=== PATIENT | female | born 1980 | race Caucasian/White ===

== ENCOUNTER → 2018-06-27 13:00 | Outpatient (CLI) | payer OTHER, SELFPAY | PROVIDERS: PCP Family Medicine | DX: Z23 Encounter for immunization (principal) | CPT/HCPCS: 90471; 90686 ==

== ENCOUNTER → 2018-11-05 10:58 | Outpatient (CLI) | payer OTHER, SELFPAY | PROVIDERS: PCP Family Medicine; Visit Provider Physician Assistant | DX: R68.89 Other general symptoms and signs (principal) | CPT/HCPCS: 87400 ==

== ENCOUNTER → 2019-01-10 10:29 | Outpatient (CLI) | payer OTHER, SELFPAY ==
--- NOTE | 2019-01-10 | DI.US.S_ITS ---
PROCEDURE: US PELVIC COMPLETE INDICATIONS: PELVIC/PERINEAL PAIN TECHNIQUE: Real-time scanning was performed of the pelvic organs, with image documentation. Additional endovaginal scanning was necessary due to incomplete visualization of the adnexal and endometrial structures by transabdominal scanning. COMPARISON: None. FINDINGS: Transabdominal scanning: Limited scanning through the kidneys shows no hydronephrosis. No pathologic free abdominal or pelvic fluid. Endovaginal scanning: Uterus: Uterus is normal in size at 7.6 x 3.1 x 4.4 cm. The endometrium measures 4-5 mm in combined thickness. Ovaries: Right ovary measures 2.6 x 2.2 x 2.2 cm. There are simple appearing physiologic follicles measuring 1.2 x 1.1 x 1.2 cm, and 1.3 x 0.7 x 1.6 cm. Left ovary measures 2.0 x 2.0 x 1.8 cm and is unremarkable. IMPRESSION: Unremarkable examination as above. Dictated by: Abhishek Lo M.D. on 01/10/2019 at 11:16 Approved by: Abhishek Lo M.D. on 01/10/2019 at 11:19
== END ==
PROVIDERS: PCP Family Medicine; Visit Provider Family Medicine
DX: R10.2 Pelvic and perineal pain (principal)
CPT/HCPCS: 76830; 76856

== ENCOUNTER → 2019-04-12 16:59 | Outpatient (CLI) | payer OTHER, SELFPAY ==
--- NOTE | 2019-04-12 17:00 | DI.MG.S_ITS ---
BILATERAL DIGITAL SCREENING MAMMOGRAM 3D/2D WITH CAD: 04/12/2019 CLINICAL: Routine screening. Baseline exam. Family history of breast cancer. No prior exams were available for comparison. The tissue of both breasts is heterogeneously dense. This may lower the sensitivity of mammography. Current study was also evaluated with a Computer Aided Detection (CAD) system. No significant masses, calcifications, or other findings are seen in either breast. IMPRESSION: NEGATIVE There is no mammographic evidence of malignancy. A 1 year screening mammogram is recommended. This exam was interpreted at Station ID: [id number]. NOTE: For mammograms, a report in lay terms will be sent to the patient. Approximately 15% of breast malignancies will not be visualized mammographically. In the management of a palpable breast mass, a negative mammogram must not discourage biopsy of a clinically suspicious lesion. Electronically Signed By: Kevon villarreal/rene:04/13/2019 08:15:04 letter sent: Normal Exam ACR BI-RADS Category 1: Negative 3341F
== END ==
PROVIDERS: PCP Family Medicine; Visit Provider Family Medicine
DX: Z12.31 Encounter for screening mammogram for malignant neoplasm of breast (principal); Z80.3 Family history of malignant neoplasm of breast
CPT/HCPCS: 77063; 77067

== ENCOUNTER 2019-07-20 10:12 | Emergency (ER) | payer OTHER, SELFPAY ==
[2019-07-20 10:36] VITALS: BP 116/72; PULSE 155; RESP 18; TEMP 37; O2SAT 98
[2019-07-20 10:43] LABS: Add Manual Diff / Slide Review NO; Basophils Absolute Auto 0 /uL (0-100); Basophils Percent Auto 0.4 % (0-2); Eosinophils Absolute Auto 0 /uL (0-450); Eosinophils Percent Auto 0.1 % (2-4); Lymphocytes Absolute Auto 800 /uL (1100-4500); Lymphocytes Percent Auto 8.7 % (25-40); Mean Corpuscular Hemoglobin 26.8 PG (26-34); Mean Corpuscular Volume 78.9 fL (80-100); Monocytes Absolute Auto 500 /uL (0-900); Monocytes Percent Auto 5.8 % (3-14); Neutrophils Absolute Auto 8100 /uL (1500-7000); Platelet Count 182 X10^3/uL (150-400); Red Cell Distribution Width 13.9 % (11.6-14.8); White Blood Cell Count 9.5 X10^3/uL (4.5-11.0)
[2019-07-20] MEDS: SODIUM CHLORIDE 0.9% 1,000 ML 1000 ML IV ×2 (10:43→12:02)
[2019-07-20 10:56] LABS: Lactate (Lactic Acid) 1.1 mmol/L (0.7-2.1)
[2019-07-20 11:04] VITALS: BP 120/76; PULSE 123; RESP 22; O2SAT 97
[2019-07-20 11:08] LABS: Strep Grp A by PCR Rapid Negative
[2019-07-20] MEDS: CEFTRIAXONE 1 GM/50 ML FROZ.PIGGY IV (11:10)
[2019-07-20] MEDS: KETOROLAC 60 MG/2 ML VIAL 15 MG IV (11:10)
[2019-07-20] MEDS: DEXAMETHASONE 10 MG/ML VIAL IV (11:10)
[2019-07-20 11:36] LABS: Procalcitonin < 0.05 ng/mL (<0.5)
[2019-07-20 11:48] LABS: Blood Urea Nitrogen 7 mg/dL (7-17); Calcium 8.8 mg/dL (8.4-10.2); Carbon Dioxide 21 mmol/L (22-32); Chloride 107 mmol/L (98-107); Estimated Glomerular Filt Rate > 60.0 mL/min (>60); Glucose 114 mg/dL (70-100); HEMOLYSIS < 15 (0-50); Magnesium 1.8 mg/dL (1.6-2.3); Sodium 140 mmol/L (137-145)
[2019-07-20 12:34] LABS: Influenza A and B by PCR Rapid Negative (Negative)
[2019-07-20 13:10] VITALS: BP 112/65; PULSE 123; RESP 20; O2SAT 97
[2019-07-20 14:04] VITALS: BP 120/73; PULSE 116; RESP 16; O2SAT 96
--- NOTE | 2019-07-20 14:22 | ED.URI ---
HPI - URI/Sore Throat General Chief Complaint: Upper Respiratory Symptoms Stated Complaint: FEVER SORE THROAT Time Seen by Provider: 07/20/19 10:14 Source: patient and family Mode of arrival: Ambulatory Limitations: no limitations History of Present Illness HPI Narrative: 39-year-old female nonsmoker with benign medical history presents from the walk-in clinic for evaluation of severe sore throat, difficulty swallowing due to pain, fever and high heart rate. There is concern for peritonsillar abscess and sepsis. Patient denies any runny nose or cough. She has no nausea, vomiting or diarrhea. MD Complaint: fever and sore throat Onset (ago): hour(s) Duration: constant Severity: moderate Relieving factors: nothing Exacerbating factors: swallowing Able to tolerate fluids by mouth: Yes Associated symptoms: fever Treatments prior to arrival: none Related Data Home Medications Medication Instructions Recorded Confirmed sertraline [Zoloft] 100 mg PO QDAY #0 01/12/13 11/05/18 Previous Rx's Medication Instructions Recorded benzonatate 100 mg capsule 100 mg PO TID PRN #30 cap 11/05/18 codeine 10 mg-guaifenesin 100 mg/5 10 ml PO .QHS PRN #120 ml 11/05/18 mL oral liquid ipratropium bromide 17 1 inhalation INHALATION QID PRN 11/05/18 mcg/actuation HFA aerosol inhaler #12.9 gram amoxicillin-pot clavulanate 1 tab PO BID #20 tab 07/20/19 [Augmentin] Allergies Allergy/AdvReac Type Severity Reaction Status Date / Time No Known Drug Allergies Allergy Verified 11/05/18 10:51 Review of Systems Constitutional Constitutional: Reports chills, Reports fatigue, Reports fever(s), Denies frequent falls, Denies lethargy and Denies weakness Eyes Eyes: Denies change in vision, Denies eye discharge, Denies irritation and Denies loss of vision ENT Ears, Nose, Mouth, and Throat: Denies change in voice, Denies dizziness, Denies neck pain, Denies sore throat and Denies throat swelling Cardiovascular Cardiovascular: Denies chest pain, Denies irregular heart rhythm, Denies lightheadedness, Reports palpitations, Denies dyspnea, Denies dyspnea on exertion and Denies orthopnea Respiratory Respiratory: Denies cough, Denies dyspnea, Denies dyspnea on exertion and Denies wheezing Gastrointestinal Gastrointestinal: Denies abdominal pain, Denies change in bowel habits, Denies diarrhea, Denies nausea and Denies vomiting Genitourinary Genitourinary: Denies hematuria, Denies flank pain, Denies urinary incontinence and Denies urinary urgency Musculoskeletal Musculoskeletal: Denies back pain, Denies muscle weakness, Denies neck pain, Denies numbness and Denies tingling Integumentary/Breasts Skin/Breast: Denies pruritus, Denies erythema, Denies rash and Denies wounds Neurologic Neurologic: Denies behavioral changes, Denies confusion, Denies dizziness, Denies frequent falls, Denies loss of vision, Denies numbness, Denies tingling and Denies weakness Psychiatric Psychiatric: Denies anxiety, Denies behavioral changes, Denies confusion, Denies depression, Denies homicidal ideation and Denies suicidal ideation Endocrine Endocrine: Reports fatigue, Denies flushing and Reports palpitations Hematologic/Lymphatic Hematologic/Lymphatic: Denies easy bruising Allergic/Immunologic Allergic/Immunologic: Denies urticaria, Denies throat swelling and Denies wheezing Patient History Social History Smoking Status: Never smoker alcohol intake frequency: 0-2 drinks per day Substance Use Type: does not use Exam Narrative Exam Narrative: GENERAL: [39] year old patient appears stated age. Well-nourished, well-developed patient, in mild distress. HEAD: Atraumatic. Normocephalic. EYES: Pupils equal round and reactive. Extraocular motions intact. No scleral icterus. No injection or drainage. ENT: Nose without bleeding, purulent drainage. Throat with erythema, but no tonsillar hypertrophy or exudate. Airway patent. NECK: Trachea midline. Non tender CARDIOVASCULAR: Tachycardic but regular rhythm without murmurs, gallops, or rubs. RESPIRATORY: Clear to auscultation. Breath sounds equal bilaterally. No wheezes, rales, or rhonchi. GASTROINTESTINAL: Abdomen soft, non-tender, nondistended. EXTREMITIES: No edema or joint tenderness. BACK: Nontender without deformity or crepitance. No flank tenderness. NEURO: AOx3. SKIN: No rash or erythema of visible areas Initial Vital Signs Initial Vital Signs: Vital Signs Temperature 98.6 F 07/20/19 10:36 Pulse Rate 155 H 07/20/19 10:36 Respiratory Rate 18 07/20/19 10:36 Blood Pressure 116/72 07/20/19 10:36 Pulse Oximetry 98 07/20/19 10:36 Course Orders Ordered: ED Orders 07/20/19 10:30 Complete Blood Count AUTO DIFF Stat Procalcitonin Stat 07/20/19 10:42 Throat Culture Stat 07/20/19 10:50 Lactate (Lactic Acid) Stat Strep Grp A by PCR Rapid Stat 07/20/19 11:17 Basic Metabolic Panel Stat Blood Culture Stat Magnesium Stat 07/20/19 11:56 Influenza A and B by PCR Rapid Stat Discontinued Medications Dexamethasone (Decadron) 10 mg IV NOW ONE Stop: 07/20/19 10:35 Last Admin: 07/20/19 11:10 Dose: 10 mg Documented by: BALDO Ceftriaxone Sodium/Dextrose (Rocephin) 1 gm in 50 mls @ 100 mls/hr IV NOW ONE Stop: 07/20/19 11:03 Last Infusion: 07/20/19 11:40 Dose: 0 mls/hr Documented by: Admin: 07/20/19 11:10 Dose: 100 mls/hr Documented by: BALDO Sodium Chloride (Normal Saline 0.9%) 1,000 mls @ 1,000 mls/hr IV BOLUS ONE Stop: 07/20/19 11:33 Last Infusion: 07/20/19 12:00 Dose: 0 mls/hr Documented by: Admin: 07/20/19 10:43 Dose: 1,000 mls/hr Documented by: CHIP Sodium Chloride (Normal Saline 0.9%) 1,000 mls @ 1,000 mls/hr IV BOLUS ONE Stop: 07/20/19 13:00 Last Infusion: 07/20/19 13:50 Dose: 0 mls/hr Documented by: Admin: 07/20/19 12:02 Dose: 1,000 mls/hr Documented by: BALDO Ketorolac Tromethamine (Toradol) 15 mg IV NOW ONE Stop: 07/20/19 10:35 Last Admin: 07/20/19 11:10 Dose: 15 mg Documented by: BALDO Reevaluation(s) Reevaluation #1: patient continues to improve over the course of the visit, HR down to 105 at time of DC. Patient AOx3. Tolerating liquids Vital Signs Vital signs: Vital Signs - 8 hr 07/20/19 11:04 07/20/19 13:10 07/20/19 14:04 Pulse Rate 123 H 123 H 116 H Respiratory Rate 22 20 16 Blood Pressure [Right Arm] 120/76 112/65 120/73 Pulse Oximetry 97 97 96 MDM - URI/Sore Throat Lab Data Result diagrams: 07/20/19 10:30 07/20/19 11:17 Labs: Lab Results 07/20/19 07/20/19 07/20/19 Range/Units 10:30 10:30 10:50 WBC 9.5 (4.5-11.0) X10^3/uL RBC 5.20 (4.0-5.2) X10^6/uL Hgb 14.0 (12.0-16.0) g/dL Hct 41.0 (36-46) % MCV 78.9 L (80-100) fL MCH 26.8 (26-34) PG MCHC 34.0 (30-36) % RDW 13.9 (11.6-14.8) % Plt Count 182 (150-400) X10^3/uL Neut % (Auto) 85.0 H (50-75) % Lymph % (Auto) 8.7 L (25-40) % Josephine % (Auto) 5.8 (3-14) % Eos % (Auto) 0.1 L (2-4) % Baso % (Auto) 0.4 (0-2) % Neut # (Auto) 8100 H (9930-1278) /uL Lymph # (Auto) 800 L (0281-2563) /uL Josephine # (Auto) 500 (0-900) /uL Eos # (Auto) 0 (0-450) /uL Baso # (Auto) 0 (0-100) /uL Sodium (137-145) mmol/L Potassium (3.4-5.1) mmol/L Chloride (98-107) mmol/L Carbon Dioxide (22-32) mmol/L BUN (7-17) mg/dL Creatinine (0.52-1.04) mg/dL Estimated GFR (>60) mL/min BUN/Creatinine Ratio (6-22) Glucose (70-100) mg/dL Lactate 1.1 (0.7-2.1) mmol/L Calcium (8.4-10.2) mg/dL Magnesium (1.6-2.3) mg/dL Procalcitonin < 0.05 (<0.5) ng/mL Influenza A & B (PCR) (Negative) Group A Strep (PCR) 07/20/19 07/20/19 07/20/19 Range/Units 10:50 11:17 11:56 WBC (4.5-11.0) X10^3/uL RBC (4.0-5.2) X10^6/uL Hgb (12.0-16.0) g/dL Hct (36-46) % MCV (80-100) fL MCH (26-34) PG MCHC (30-36) % RDW (11.6-14.8) % Plt Count (150-400) X10^3/uL Neut % (Auto) (50-75) % Lymph % (Auto) (25-40) % Josephine % (Auto) (3-14) % Eos % (Auto) (2-4) % Baso % (Auto) (0-2) % Neut # (Auto) (4610-9833) /uL Lymph # (Auto) (0042-4471) /uL Josephine # (Auto) (0-900) /uL Eos # (Auto) (0-450) /uL Baso # (Auto) (0-100) /uL Sodium 140 (137-145) mmol/L Potassium 4.0 (3.4-5.1) mmol/L Chloride 107 (98-107) mmol/L Carbon Dioxide 21 L (22-32) mmol/L BUN 7 (7-17) mg/dL Creatinine 0.70 (0.52-1.04) mg/dL Estimated GFR > 60.0 (>60) mL/min BUN/Creatinine Ratio 10.0 (6-22) Glucose 114 H (70-100) mg/dL Lactate (0.7-2.1) mmol/L Calcium 8.8 (8.4-10.2) mg/dL Magnesium 1.8 (1.6-2.3) mg/dL Procalcitonin (<0.5) ng/mL Influenza A & B (PCR) Negative (Negative) Group A Strep (PCR) Negative Point of Care Testing Test Results Negative Urine Dip Bedside Urine Glucose Negative Bedside Urine Bilirubin - Negative Bedside Urine Ketone +++ 80 Urine Specific [place] 1.015 Bedside Urine Occult Blood - Negative Bedside Urine pH 6.0 Bedside Urine Protein - Negative Bedside Urine Urobilinogen - Negative Bedside Urine Nitrite - Negative Bedside Urine Leukocytes - Negative Esterase MDM Narrative Medical decision making narrative: Patient shows great improvement after above-stated therapies. Labs and exam are very reassuring. No peritonsillar abscess on exam. Given rapid onset of symptoms and elevated fever seems reasonable to treat with antibiotics until the cultures come back as we have had multiple negative POC straps with a follow-up culture that is positive. Return precautions given, questions answered to her apparent satisfaction. Discharge Plan Departure Patient Disposition: Home Clinical Impression: Pharyngitis Qualifiers: Pharyngitis/tonsillitis etiology: unspecified etiology Qualified Code(s): J02.9 - Acute pharyngitis, unspecified Discharge Date/Time: 07/20/19 14:29 Instructions: DI for Pharyngitis/Tonsillopharyngitis -- Adult Activity Restrictions/Additional Instructions: *You have been diagnosed with [ pharyngitis, flu and strep have been considered, but ruled out based on testing. ] *What to do: *Take medications as directed *Follow up with your primary care provider in 2-3 days, call for an appointment. Let them know you were seen in the Emergency Department and that we ask that you be seen in follow up *Return to ER if you should have any new, worsening or concerning symptoms Prescriptions: New amoxicillin-pot clavulanate [Augmentin] 875-125 mg tablet 1 tab PO BID Qty: 20 RF: 0 No Action benzonatate [Tessalon Perles] 100 mg capsule 100 mg PO TID PRN (Reason: cough) Qty: 30 RF: 0 codeine-guaifenesin [Cheratussin AC] 10-100 mg/5 mL liquid 10 ml PO .QHS PRN (Reason: cough limiting sleep) Qty: 120 RF: 0 ipratropium bromide 17 mcg/actuation HFA aerosol inhaler 1 inhalation INHALATION QID PRN (Reason: shortness of breath or wheezing) Qty: 12.9 RF: 0 sertraline [Zoloft] 100 MG tablet 100 mg PO QDAY Qty: 0 RF: 0 Referrals: Ines Pitts MD [Primary Care Provider] -
== END 2019-07-20 14:29 | disposition home or self-care (01) ==
PROVIDERS: Emergency Provider Emergency Medicine; PCP Family Medicine
DX: J02.9 Acute pharyngitis, unspecified (principal)
CPT/HCPCS: 36415; 80048; 81003; 81025; 83605; 83735; 84145; 85025; 87040; 87070; 87077; 87147; 87502; 87651; 96361; 96365; 96375; 99283; 99284; J1100; J1885

== ENCOUNTER → 2019-10-17 13:48 | Outpatient (CLI) | payer OTHER, SELFPAY ==
--- NOTE | 2019-11-02 16:12 | PM.CARDMON.1 ---
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 Rare PVC and PAC identified
== END ==
PROVIDERS: PCP Family Medicine; Referring Provider Family Medicine; Visit Provider Family Medicine
DX: R00.2 Palpitations (principal)
CPT/HCPCS: 0296T; 0298T

== ENCOUNTER → 2019-10-17 15:32 | Outpatient (ROUT) | payer OTHER, SELFPAY ==
[2019-10-17 16:10] LABS: Influenza A - CEPHEID Flu A NEGATIVE (NEGATIVE); Influenza B - CEPHEID Flu B NEGATIVE (NEGATIVE)
== END ==
PROVIDERS: PCP Family Medicine; Visit Provider Family Medicine
DX: R50.9 Fever, unspecified (principal); R07.0 Pain in throat
CPT/HCPCS: 87081; 87502

== ENCOUNTER → 2020-04-15 10:43 | Outpatient (CLI) | payer OTHER, SELFPAY ==
--- NOTE | 2020-04-15 | DI.MG.S_ITS ---
BILATERAL DIGITAL SCREENING MAMMOGRAM 3D/2D WITH CAD: 04/15/2020 CLINICAL: Routine screening. Family history of breast cancer. Comparison is made to exam dated: 04/12/[facility]. The tissue of both breasts is heterogeneously dense. This may lower the sensitivity of mammography. Current study was also evaluated with a Computer Aided Detection (CAD) system. No significant masses, calcifications, or other findings are seen in either breast. There has been no significant interval change. IMPRESSION: NEGATIVE There is no mammographic evidence of malignancy. A 1 year screening mammogram is recommended. This exam was interpreted at Station ID: [id number]. NOTE: For mammograms, a report in lay terms will be sent to the patient. Approximately 15% of breast malignancies will not be visualized mammographically. In the management of a palpable breast mass, a negative mammogram must not discourage biopsy of a clinically suspicious lesion. Electronically Signed By: Dg Allan M.D., jr/rene:04/15/2020 11:07:53 letter sent: Normal Exam ACR BI-RADS Category 1: Negative 3341F
== END ==
PROVIDERS: PCP Family Medicine; Referring Provider Family Medicine; Visit Provider Family Medicine
DX: Z12.31 Encounter for screening mammogram for malignant neoplasm of breast (principal); Z80.3 Family history of malignant neoplasm of breast
CPT/HCPCS: 77063; 77067

== ENCOUNTER → 2021-12-02 07:38 | Outpatient (CLI) | payer BC, SELFPAY ==
--- NOTE | 2021-12-02 | DI.MG.S_ITS ---
BILATERAL DIGITAL SCREENING MAMMOGRAM 3D/2D WITH CAD: 12/02/2021 CLINICAL: Routine screening. Family history of breast cancer. Comparison is made to exams dated: 04/15/2020 mammogram and 04/12/2019 mammogram - [facility]. The tissue of both breasts is heterogeneously dense. This may lower the sensitivity of mammography. Current study was also evaluated with a Computer Aided Detection (CAD) system. No significant masses, calcifications, or other findings are seen in either breast. There has been no significant interval change. IMPRESSION: NEGATIVE There is no mammographic evidence of malignancy. A 1 year screening mammogram is recommended. This exam was interpreted at Station ID: [id number]. NOTE: For mammograms, a report in lay terms will be sent to the patient. Approximately 15% of breast malignancies will not be visualized mammographically. In the management of a palpable breast mass, a negative mammogram must not discourage biopsy of a clinically suspicious lesion. Electronically Signed By: Julio de jesus/rene:12/02/2021 12:40:27 letter sent: Normal Exam ACR BI-RADS Category 1: Negative 3341F
== END ==
PROVIDERS: PCP Family Medicine; Referring Provider Family Medicine; Visit Provider Family Medicine
DX: Z12.31 Encounter for screening mammogram for malignant neoplasm of breast (principal); Z80.3 Family history of malignant neoplasm of breast
CPT/HCPCS: 77063; 77067

== ENCOUNTER → 2022-05-08 15:08 | Outpatient (CLI) | payer BC, SELFPAY | PROVIDERS: PCP Family Medicine; Visit Provider Registered Nurse | DX: J02.9 Acute pharyngitis, unspecified (principal) | CPT/HCPCS: 87070 ==

== ENCOUNTER → 2022-10-24 10:49 | Outpatient (CLI) | payer BC, SELFPAY ==
--- NOTE | 2022-10-24 10:51 | DI.MRI.S_ITS ---
PROCEDURE: MR SHOULDER LT WO CON INDICATIONS: Hyperlipidemia, unspecified TECHNIQUE: Noncontrast oblique coronal T2 fast spin echo with fat saturation, oblique sagittal T1 spin echo and T2 fast spin echo with fat saturation, axial T1 spin echo and T2 fast spin echo with fat saturation through the shoulder. COMPARISON: None. FINDINGS: Image quality: Excellent. Rotator cuff: Low-grade bursal surface partial thickness tear involving distal supraspinatus at its insertion on the humeral head is seen extending to musculotendinous junction. Distal infraspinatus and subscapularis tendinosis is seen. No full-thickness rotator cuff tendon rupture. Sagittal images demonstrate no significant rotator cuff muscle atrophy. Bones and bursae: Moderate acromioclavicular joint osteoarthritic changes are seen with joint space narrowing, subchondral sclerosis and edema and downward osteophyte formation depressing the musculotendinous junction of supraspinatus. Small to moderate joint effusion and subacromial subdeltoid bursal fluid is seen, no gross loose bodies. No fracture or dislocation. Capsule and soft tissues: There is subtle signal abnormality and contour irregularity involving superior anterior labrum at 12 to 1 o'clock position concerning for focal superior anterior labral tear. The long head of the biceps tendon demonstrates normal location and morphology. The rotator interval appears normal, without fibrosis. The coracohumeral ligament is normal in thickness. IMPRESSION: 1. Low-grade bursal surface partial-thickness tear involving distal supraspinatus extending to musculotendinous junction. Distal infraspinatus and subscapularis tendinosis. No full-thickness rotator cuff tendon rupture. No significant muscle atrophy. 2. Moderate acromioclavicular joint osteoarthritis. Small to moderate amount of joint effusion and subacromial subdeltoid bursal fluid. No fracture or dislocation. 3. Suggestion of subtle superior anterior labral tear at 12 to 1 o'clock position. Dictated by: Mayco Alba M.D. on 10/25/2022 at 10:08 Approved by: Mayco Alba M.D. on 10/25/2022 at 10:14
== END ==
PROVIDERS: PCP Family Medicine; Referring Provider Family Medicine; Visit Provider Family Medicine
DX: M75.112 Incomplete rotator cuff tear or rupture of left shoulder, not specified as traumatic (principal); M19.012 Primary osteoarthritis, left shoulder; E78.5 Hyperlipidemia, unspecified
CPT/HCPCS: 73221

== ENCOUNTER → 2024-10-13 10:32 | Outpatient (CLI) | payer BC, SELFPAY ==
--- NOTE | 2024-10-13 | DI.MG.S_ITS ---
BILATERAL DIGITAL SCREENING MAMMOGRAM 3D/2D WITH CAD: 10/13/2024 CLINICAL: Routine screening. Family history of breast cancer. Comparison is made to exams dated: 12/02/2021 mammogram, 04/15/2020 mammogram, and 04/12/2019 mammogram - [facility]. The breasts are heterogeneously dense, which may obscure small masses (category c / 51-75% glandular tissue). Current study was also evaluated with a Computer Aided Detection (CAD) system. No significant masses, calcifications, or other findings are seen in either breast. There has been no significant interval change. IMPRESSION: NEGATIVE There is no mammographic evidence of malignancy. A 1 year screening mammogram is recommended. Based on Tyrer-Cuzick model (a risk assessment model), the patient's lifetime risk is 22.4% and her 10 year risk is 4.6%. If a patient has an elevated risk, a more comprehensive evaluation should be considered and/or a referral to a genetic counselor. The [place] [employer], [place] [employer], and NCCN Guidelines advise the consideration of Breast MRI as an adjunct to screening mammography in patients whose Lifetime risk to develop breast cancer is 20% or higher. This exam was interpreted at Station ID: [id number]. NOTE: For mammograms, a report in lay terms will be sent to the patient. Approximately 15% of breast malignancies will not be visualized mammographically. In the management of a palpable breast mass, a negative mammogram must not discourage biopsy of a clinically suspicious lesion. Electronically Signed By: Kevon villarreal/rene:10/15/2024 07:31:59 letter sent: Normal Exam ACR BI-RADS Category 1: Negative
== END ==
PROVIDERS: PCP Family Medicine; Referring Provider Family Medicine; Visit Provider Family Medicine
DX: Z12.31 Encounter for screening mammogram for malignant neoplasm of breast (principal); Z80.3 Family history of malignant neoplasm of breast; R92.333 Mammographic heterogeneous density, bilateral breasts
CPT/HCPCS: 77063; 77067

== ENCOUNTER → 2024-10-29 12:27 | Outpatient (CLI) | payer BC, SELFPAY ==
--- NOTE | 2024-10-29 12:28 | DI.MRI.S_ITS ---
BREAST MRI OF BOTH BREASTS: 10/29/2024 CLINICAL: High risk screening. Family history of breast cancer. TECHNIQUE: The patient was placed prone in a dedicated breast imaging coil. Precontrast axial STIR and 3D FLASH without fat saturation sequences were obtained. Both before and after bolus injection of contrast, sequential 1-minute axial 3D FLASH with fat saturation sequences for 3 time points, with subtraction images and maximum intensity projections (MIP's) generated. Delayed sagittal FLASH images with fat saturation were also obtained. Computer-aided detection, including computer algorithm analysis of MRI image data for lesion detection and characterization, pharmacokinetic analysis, with further physician review for interpretation, was performed. COMPARISON: [facility], , SCREENING MAMMO BI, 12/02/2021, 7:59. [facility], SCREENING MAMMO BI, 10/13/2024, 11:00. FINDINGS: Image quality: Excellent. There is moderate bilateral background parenchymal enhancement. Right breast: No suspicious mass or non masslike enhancement. No skin or nipple abnormalities. Left breast: No suspicious mass or non masslike enhancement. No skin or nipple abnormalities. Miscellaneous: No axillary or internal mammary chain adenopathy. The visible portions of the chest wall, liver, heart, and lungs appear normal. IMPRESSION: NEGATIVE No MR evidence of malignancy in either breast. Continue annual screening with mammogram and MRI. BIRADS one, negative COMMENT: The imaging literature indicates that a negative contrast breast MRI examination has a high sensitivity and a moderate specificity for detecting and excluding invasive carcinomas to a detection threshold of 3-5 mm; nonetheless, appropriate clinical and mammographic follow-up are recommended. MRI is not sensitive for detecting DCIS (ductal carcinoma in situ) and may not detect large invasive neoplasms that show only minimal enhancement such as mucinous carcinoma. If there are suspicious calcifications or clinically worrisome palpable masses, then biopsy should still be considered. Invasive neoplasms can be hidden by co-existent and benign enhancement caused by mastitis, hormone therapy effects, radiation therapy, , and recent biopsy or surgery. False positive examinations can occur in a number of circumstances, including breasts that have recently been subject to invasive procedures and those that contain atypical ductal hyperplasia, hormonally stimulated glandular tissue, fat necrosis, or radial scars. This exam was interpreted at Station ID: [id number]. Electronically Signed By: Kitty malhotra/:10/29/2024 17:33:45 Entry: gulshan - 10/30/2024 08:53:14 ACR BI-RADS Category 1: Negative
== END ==
PROVIDERS: PCP Family Medicine; Referring Provider Family Medicine; Visit Provider Family Medicine
DX: R92.30 Dense breasts, unspecified (principal); Z91.89 Other specified personal risk factors, not elsewhere classified; Z12.39 Encounter for other screening for malignant neoplasm of breast; Z80.3 Family history of malignant neoplasm of breast
CPT/HCPCS: 77049; A9579

== ENCOUNTER → 2024-11-19 12:55 | Outpatient (CLI) | payer BC, SELFPAY ==
--- NOTE | 2024-11-19 12:58 | DI.RAD.S_ITS ---
PROCEDURE: XR PELVIS 1-2V INDICATIONS: LOW BACK PAIN TECHNIQUE: Single view(s) of the pelvis acquired. COMPARISON: None. FINDINGS: Bones: No fractures or dislocations. Lumbarized S1 spina bifida occulta noted. Otherwise, no suspicious bony lesions. Soft tissues: Visualized bowel gas pattern is normal. No suspicious soft tissue calcifications. IMPRESSION: No acute bony abnormality. Dictated by: Galen Linder M.D. on 11/19/2024 at 17:17 Approved by: Galen Linder M.D. on 11/19/2024 at 17:17
--- NOTE | 2024-11-19 12:58 | DI.RAD.S_ITS ---
PROCEDURE: XR LUMBAR SPINE MIN 4V INDICATIONS: LOW BACK PAIN TECHNIQUE: 5 views of the lumbar spine were acquired, including bilateral oblique views.>> COMPARISON: None. FINDINGS: Bones: 6 nonrib-bearing vertebrae are present. Transitional vertebral anatomy noted with lumbarization of S1. S1 spina bifida occulta noted. There is normal bony alignment. No vertebral body compression fractures. No suspicious bony lesions. Soft tissues: Overlying bowel gas pattern is normal. No suspicious soft tissue calcifications. Oblique images: No pars defects. IMPRESSION: No acute bony abnormality. S1 spina bifida occulta and transitional vertebral anatomy with lumbarization of S1. Dictated by: Galen Linder M.D. on 11/19/2024 at 17:12 Approved by: Galen Linder M.D. on 11/19/2024 at 17:16
== END ==
PROVIDERS: PCP Family Medicine; Referring Provider Family Medicine; Visit Provider Family Medicine
DX: M53.3 Sacrococcygeal disorders, not elsewhere classified (principal); Q76.0 Spina bifida occulta; Q76.49 Other congenital malformations of spine, not associated with scoliosis; M54.50 Low back pain, unspecified
CPT/HCPCS: 72110; 72170

== ENCOUNTER → 2025-01-10 18:58 | Outpatient (CLI) | payer BC, SELFPAY ==
--- NOTE | 2025-01-10 | DI.MRI.S_ITS ---
PROCEDURE: MR KNEE RT WO CON INDICATIONS: Acute pain rt knee TECHNIQUE: Noncontrast sagittal PD fast spin echo and T2 fast spin echo with fat saturation, sagittal 3-D FLASH with fat saturation; coronal T1 spin echo and PD fast spin echo with fat saturation, and axial PD fast spin echo with fat saturation through the knee. COMPARISON: None. FINDINGS: Image quality: Excellent. Anterior cruciate ligament: Intact. Posterior cruciate ligament: Complete midsubstance tearing of the posterior cruciate ligament. Medial collateral ligament: Intact. Lateral collateral ligament: Intact. Medial meniscus: Horizontal oblique signal at the body and posterior horn of the medial meniscus approaches and likely communicates with the middle third of the tibial articular surface. Lateral meniscus: Intact. Medial and lateral tendons: The semimembranosus tendon insertions appear intact. Visualized portions of the pes anserinus tendons appear normal. The popliteus tendon is intact. Iliotibial band appears normal. Anterior structures: The quadriceps and patellar tendons appear intact. No patellar subluxation. No femoral trochlear dysplasia or ventral trochlear prominence. No edema in the infrapatellar fat pad. Bones: No bone marrow contusions or fractures. Medial femorotibial cartilage: Mild partial-thickness cartilage thinning in the weight-bearing portion of the medial femorotibial compartment. No focal cartilage defect.. Lateral femorotibial cartilage: No focal cartilage defect. Patellofemoral cartilage: Partial-thickness cartilage irregularity in deep cartilage fissuring in the patella with subchondral cystic changes and mild subchondral edema. Partial-thickness cartilage irregularity at the trochlear groove. Soft tissues: Small joint effusion. Trace medial popliteal cyst. Visualized musculature is normal in bulk. IMPRESSION: 1. Complete midsubstance tearing of the posterior cruciate ligament. 2. Suspected horizontal oblique tear at the body and posterior horn of the medial meniscus extending to the middle third of the tibial articular surface. 3. 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 Mild grade 2 cartilage thinning in the medial femorotibial compartment. 4. Small joint effusion. Approved by: Roderick Pulliam M.D. on 01/11/2025 at 17:13
== END ==
LOC: MRI 19:03
PROVIDERS: PCP Family Medicine; Referring Provider Family Medicine; Visit Provider Family Medicine
DX: S83.521A Sprain of posterior cruciate ligament of right knee, initial encounter (principal); M22.41 Chondromalacia patellae, right knee; M25.461 Effusion, right knee; M25.561 Pain in right knee
CPT/HCPCS: 73721